=== PATIENT | male | born 1960 | race Caucasian/White ===

== ENCOUNTER 2019-05-03 11:16 | Emergency (ER) | payer OTHER ==
[2019-05-03 11:20] VITALS: BP 150/93; PULSE 84; TEMP 98.5; BMI 28.1
[2019-05-03] MEDS ORDERED: SODIUM CHLORIDE 1,000 ML IV STA (11:40)
[2019-05-03 12:10] LABS: URINE APPEARANCE CLEAR; URINE BILIRUBIN NEGATIVE (NEGATIVE); URINE COLOR YELLOW; URINE GLUCOSE (UA) 3+ (NEGATIVE); URINE KETONE TRACE (NEGATIVE); URINE LEUK ESTERASE NEGATIVE (NEGATIVE); URINE NITRITE NEGATIVE (NEGATIVE); URINE PROTEIN NEGATIVE (NEGATIVE)
--- NOTE | 2019-05-03 12:14 | PDOC ---
History of Present Illness - General Chief Complaint: Urinary Problem Stated Complaint: KIDNEY STONES Time Seen by Provider: 05/03/19 11:34 History Source: Patient Exam Limitations: No Limitations - History of Present Illness Travel History: No Initial Comments: 05/03/19 12:13 58-year-old male presents to ED with complaints of difficulty urinating intermittently and passing of 3 hard stones over the course of 2 days. Patient states has no abdominal pain, back pain, nausea fever or chills. Patient denies history of renal colic or prostate disorder. Patient states urinated clear yellow urine twice today without difficulty Timing/Duration: reports: intermittent Quality: reports: mild Aggravating Factors: improves with: Voiding Past History - Travel Traveled outside of the country in the last 30 days: No Close contact w/someone who was outside of country & ill: No - Past Medical History Allergies/Adverse Reactions: Allergies Allergy/AdvReac Type Severity Reaction Status Date / Time No Known Allergies Allergy Verified 05/03/19 11:20 COPD: No Seizures: Yes - Suicide/Smoking/Psychosocial Hx Smoking History: Current every day smoker Number of Cigarettes Smoked Daily: 3 Information on smoking cessation initiated: No Hx Alcohol Use: No Drug/Substance Use Hx: No Patient Lives Alone: No Lives with/in: spouse/SO Review of Systems - Review of Systems Able to Perform ROS?: Yes Constitutional: No: Symptoms Reported Respiratory: No: Symptoms reported Cardiac (ROS): No: Symptoms Reported ABD/GI: No: Symptoms Reported : Yes: Dysuria, Urgency, Other Musculoskeletal: No: Symptoms Reported Integumentary: No: Symptoms Reported Neurological: No: Symptoms reported *Physical Exam - Vital Signs Last Vital Signs Temp Pulse Resp BP Pulse Ox 98.5 F 84 18 150/93 96 05/03/19 11:18 05/03/19 11:18 05/03/19 11:18 05/03/19 11:18 05/03/19 11:18 - Physical Exam General Appearance: Yes: Nourished, Appropriately Dressed. No: Apparent Distress Gastrointestinal/Abdominal: positive: Soft. negative: Tenderness Male Genitalia: positive: normal genitalia. negative: discharge, testicular tenderness, testicular mass, hernia Musculoskeletal: negative: CVA Tenderness Extremity: positive: Normal Inspection Integumentary: positive: Normal Color, Warm, Moist Neurologic: positive: Motor Strength 5/5 (ambulatory) ED Treatment Course - LABORATORY CBC & Chemistry Diagram: 05/03/19 12:00 05/03/19 12:00 - ADDITIONAL ORDERS Additional order review: Laboratory Results 05/03/19 11:55 Urine Color Yellow Urine Appearance Clear Urine pH 5.0 Ur Specific [place] 1.028 Urine Protein Negative Urine Glucose (UA) 3+ H Urine Ketones Trace H Urine Blood Negative Urine Nitrite Negative Urine Bilirubin Negative Urine Urobilinogen 1.0 Ur Leukocyte Esterase Negative - RADIOLOGY Radiology Studies Ordered: Category Date Time Status SPIRAL- RENAL-STONE CT [CT] Stat CT Scan 05/03/19 11:39 Ordered Medical Decision Making - Medical Decision Making 05/03/19 12:15 Chief complaint: Urinary frequency and mild dysuria over the past 2 days passing light brown colored stones 3. No complaints today Exam: Vital signs stable no abdominal pain no CVA tenderness Plan: Urine, labs and spiral CT ordered 05/03/19 15:49 Laboratory Tests 05/03/19 05/03/19 05/03/19 11:55 12:00 12:00 WBC 6.5 Hgb 15.2 Hct 43.4 Absolute Neuts (auto) 4.3 Sodium 136 Potassium 4.3 Chloride 104 Carbon Dioxide 24 Anion Gap 8 BUN 18.8 H Creatinine 1.1 Random Glucose 265 H Calcium 9.1 Magnesium 2.5 H Total Bilirubin 0.7 AST 55 H ALT 119 H Alkaline Phosphatase 100 Total Protein 7.4 Lipase 172 Urine Glucose (UA) 3+ H Urine Ketones Trace H Urine Blood Negative Urine Nitrite Negative Ur Leukocyte Esterase Negative Ultrasound CT shows an liver slightly enlarged urgent 18 cm and chronic caudal length with diffuse decreased attenuation compatible with fatty liver. The left kidney is in normal limits in size to 2 mm nonobstructing stone in his upper pole and another 2 mm nonobstructing pole within the lower pole. The right kidney is within normal limits without evidence of stones. Prostate gland measuring 5.2 x 4 cm in transverse in AP dimension. Patient will be given a prescription for Flomax for 7 days and referral to urologist and recommendations to follow-up with his PCP in regards to his enlarged prostate and follow-up of kidney stones *DC/Admit/Observation/Transfer Diagnosis at time of Disposition: Kidney stone on left side - Discharge Dispostion Disposition: HOME Condition at time of disposition: Good - Referrals Referrals: Benson Lao [Primary Care Provider] - Leon Coats MD [Staff Physician] - - Patient Instructions Printed Discharge Instructions: DI for Kidney Stones Additional Instructions: Drink plenty of fluids. Take medication as prescribed and please up with your primary care physician and referred urologist - Post Discharge Activity
[2019-05-03 12:30] LABS: BASO % 0.6 % (0-2.0); EOS % 4.1 % (0-4.5); HEMATOCRIT 43.4 % (35.4-49); HEMOGLOBIN 15.2 GM/dL (11.7-16.9); LYMPH % 20.4 % (8-40); MCH 31.4 pg (25.7-33.7); MCHC 34.9 g/dl (32.0-35.9); MEAN PLT VOLUME 9.8 fl (7.5-11.1); NEUT % 66.9 % (42.8-82.8); PLATELET COUNT 168 K/MM3 (134-434); RBC 4.82 M/mm3 (4.00-5.60); RDW 13.2 % (11.9-15.9); WHITE BLOOD COUNT 6.5 K/mm3 (4.0-10.0)
[2019-05-03 13:02] LABS: ALBUMIN 4.1 g/dl (3.4-5.0); BILIRUBIN,TOTAL 0.7 mg/dL (0.2-1); BLOOD UREA NITROGEN 18.8 mg/dL (7-18); CALCIUM 9.1 mg/dL (8.5-10.1); CREATININE 1.1 mg/dL (0.55-1.3); MAGNESIUM 2.5 mg/dL (1.8-2.4); POTASSIUM 4.3 mmol/L (3.5-5.1); TOT PROT 7.4 g/dl (6.4-8.2)
== END 2019-05-03 15:58 | disposition home or self-care (01) ==
LOC: JER 11:16
PROC: 3E0337Z Introduction of Electrolytic and Water Balance Substance into Peripheral Vein, Percutaneous Approach (ICD-10-PCS; principal; 2019-05-03)
DX: N20.0 Calculus of kidney (principal)
CPT/HCPCS: 36415; 74176-TC; 80053; 81003; 83690; 83735; 85025; 87086; 96360; 99282-25; J7030

== ENCOUNTER 2020-01-04 05:29 | Inpatient (IN) | payer OTHER ==
[2020-01-04 06:39] LABS: HEMATOCRIT 39.8 % (35.4-49); HEMOGLOBIN 14.1 GM/dL (11.7-16.9); MCH 31.9 pg (25.7-33.7); MCHC 35.5 g/dl (32.0-35.9); MEAN CELL VOLUME 89.9 fl (80-96); MEAN PLT VOLUME 10.3 fl (7.5-11.1); PLATELET COUNT 112 K/MM3 (134-434); RBC 4.43 M/mm3 (4.00-5.60); RDW 13.2 % (11.9-15.9)
[2020-01-04 07:00] LABS: ALBUMIN 3.7 g/dl (3.4-5.0); ALK PHOS 89 U/L (45-117); ANION GAP 11 MMOL/L (8-16); BILIRUBIN,TOTAL 0.5 mg/dL (0.2-1); BLOOD UREA NITROGEN 15.5 mg/dL (7-18); CALCIUM 8.5 mg/dL (8.5-10.1); CHLORIDE 106 mmol/L (98-107); CO2 23 mmol/L (21-32); GLUCOSE,RANDOM 283 mg/dL (74-106); POTASSIUM 3.8 mmol/L (3.5-5.1); SGOT/AST 30 U/L (15-37); SGPT/ALT 69 U/L (13-61); SODIUM 139 mmol/L (136-145); TOT PROT 6.7 g/dl (6.4-8.2)
--- NOTE | 2020-01-04 07:35 | PDOC ---
History of Present Illness - General Chief Complaint: Lightheaded Stated Complaint: DIZZINESS Time Seen by Provider: 01/04/20 07:18 History Source: Patient Exam Limitations: No Limitations - History of Present Illness Initial Comments: 01/04/20 07:58 59 y.o. M PMH epilepsy (on dilantin but misses doses) and surgical hx of R frontal lobe craniotomy in the presenting for vertigo. Patient is a poor historian. Says he began to feel dizzy around 6pm last night after he "ate some weird cheese." Denies falling/ head trauma/ LOC/ headache or recent seizure but endorsing unsteady gait. Says he has not taken his dilantin dose in about 1 week because he does not get seizures. Does not see a neurologist. Unclear hx of alcohol use, says last drink was 3 days ago but will occasionally drink a few pints of vodka, about 1x per week. Denies illicit substance use. Says he used to see a Dr. Hurtado (neurosurgery) at [facility] but has not seen him in many years. 01/04/20 08:41 CT head showing s/p R frontal lobe craniotomy. R frontal lobe encephalomalacia w/ compensatory dilatation of the R frontal horn of R lateral ventricle. 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 Past History - Past Medical History Allergies/Adverse Reactions: Allergies Allergy/AdvReac Type Severity Reaction Status Date / Time No Known Allergies Allergy Verified 01/04/20 05:49 Home Medications: Ambulatory Orders Phenytoin Na Extended [Dilantin -] 300 mg PO DAILY 01/04/20 Cane 1 each MC DAILY #1 each 01/05/20 Meclizine HCl [Antivert -] 12.5 mg PO Q6HPO PRN #28 tablet 01/05/20 COPD: No Kidney Stones: Yes Seizures: Yes - Psycho Social/Smoking Cessation Hx Smoking Status: Yes Smoking History: Current every day smoker Have you smoked in the past 12 months: Yes Number of Cigarettes Smoked Daily: 3 Hx Alcohol Use: Yes (Social) Drug/Substance Use Hx: No Patient Lives Alone: Yes Review of Systems - Review of Systems Comments:: 01/04/20 07:34 GENERAL/CONSTITUTIONAL: No fever or chills. No weakness. HEAD, EYES, EARS, NOSE AND THROAT: No change in vision. No change in hearing. No sore throat. CARDIOVASCULAR: No chest pain or shortness of breath RESPIRATORY: Denies cough, hemoptysis GASTROINTESTINAL: No nausea, vomiting, diarrhea or constipation. GENITOURINARY: No dysuria, frequency, or change in urination. MUSCULOSKELETAL: No joint or muscle swelling or pain. No neck or back pain. SKIN: No rash noted NEUROLOGIC: + vertigo present w/ movement. No headache, loss of consciousness, or change in strength/sensation. ENDOCRINE: No increased thirst. No abnormal weight change HEMATOLOGIC/LYMPHATIC: No anemia, easy bleeding, or history of blood clots. ALLERGIC/IMMUNOLOGIC: No hives or skin allergy. *Physical Exam - Vital Signs Last Vital Signs Temp Pulse Resp BP Pulse Ox 98.1 F 65 22 H 137/80 99 01/04/20 05:30 01/04/20 05:30 01/04/20 05:30 01/04/20 05:30 01/04/20 05:30 - Physical Exam 01/04/20 07:35 GENERAL: Awake, alert, and oriented to person/place/time, in no acute distress. HEAD: No signs of trauma, NCAT EYES: Pupils miosed 1mm b/l, minimally reactive. EOMI. + scleral icterus. R medial conjunctiva blood vessel rupture. ENT: Hearing grossly normal, nares patent, oropharynx clear without exudates. MMM. NECK: Normal ROM, supple, no lymphadenopathy, JVD, or masses. LUNGS: No distress, speaking in full sentences, CTABL. HEART: Regular rate and rhythm, normal S1 and S2, no murmurs appreciated, p eripheral pulses normal and equal bilaterally. ABDOMEN: Soft, nontender, normoactive bowel sounds. No guarding, no rebound. No masses. EXTREMITIES: Normal inspection, Normal range of motion, no edema. No clubbing or cyanosis. NEUROLOGICAL: + Mateus hallpike maneuver w/ R nystagmus. R saccadic movement w/ R sided head turn. SKIN: Warm, Dry, normal turgor, no rashes or lesions noted. ED Treatment Course - LABORATORY CBC & Chemistry Diagram: 01/05/20 07:30 01/05/20 07:30 - ADDITIONAL ORDERS Additional order review: Laboratory Results 01/04/20 05:55 Sodium 139 Potassium 3.8 Chloride 106 Carbon Dioxide 23 Anion Gap 11 BUN 15.5 Creatinine 1.0 Est GFR (CKD-EPI)AfAm 95.06 Est GFR (CKD-EPI)NonAf 82.02 Random Glucose 283 H Calcium 8.5 Total Bilirubin 0.5 AST 30 ALT 69 H Alkaline Phosphatase 89 Troponin I < 0.02 Total Protein 6.7 Albumin 3.7 01/04/20 05:55 RBC 4.43 MCV 89.9 MCHC 35.5 RDW 13.2 MPV 10.3 Medical Decision Making - Medical Decision Making 01/04/20 10:46 EKG: NSR, no ST-T changes normal qtc Head CT findings as above. Labs: glucose 283. 01/04/20 10:47 UA, U-tox ordered Discharge - Discharge Information Problems reviewed: Yes Clinical Impression/Diagnosis: Epilepsy Condition: Improved - Admission Yes - Follow up/Referral - Patient Discharge Instructions - Post Discharge Activity
[2020-01-04] MEDS ORDERED: ONDANSETRON 4 MG/2 ML VIAL IVPUSH PRN (10:08)
--- NOTE | 2020-01-04 11:00 | EKG ---
Test Reason : Blood Pressure : / mmHG Vent. Rate : 065 BPM Atrial Rate : 065 BPM P-R Int : 164 ms QRS Dur : 082 ms QT Int : 398 ms P-R-T Axes : 035 047 027 degrees QTc Int : 413 ms NORMAL SINUS RHYTHM NORMAL ECG NO PREVIOUS ECGS AVAILABLE Confirmed by Adan Villafuerte MD ([id number]) on 01/04/2020 11:00:02 AM Referred By: Confirmed By:Adan Villafuerte MD
[2020-01-04] MEDS ORDERED: MECLIZINE HCL 12.5 MG TABLET PO PRN (11:17)
--- NOTE | 2020-01-04 11:29 | HP ---
CHIEF COMPLAINT: dizziness PCP: Dr. Gupta at [address] [place] [address] HISTORY OF PRESENT ILLNESS: 59 y/o male with PMH of epilepsy (on dilantin; hasnt taken any in a few days since he hasn't been having "active" seizures), kidney stones, previous R frontal lobe craniotomy (at [facility]- sees Dr Hurtado) presents to the ED with complaints of intractable dizziness - the dizziness has been ongoing for over a month with some gait disturbances ( he has not been driving for the past month or so) he states that he feels as if he is spinning and at times so is the room however got suddenly worse last night after he ate dinner; its associated with nausea no vomiting no headaches or vision changes denies any recent travel or sick contacts- patient lives alone ER course was notable for: (1)vitals and labs wnl- dilantin level wnl; UA/Utox pending (2) head CT- negative for any acute patholgogy; (3)given IV fluids; zofran; meclizine Recent Travel: denies PAST MEDICAL HISTORY: see above PAST SURGICAL HISTORY: R frontal craniotomy Social History: Smoking:denies Alcohol:former; used to drink a pint per week- hasn't had a drink in 3 months Drugs: Allergies No Known Allergies Allergy (Verified 01/04/20 05:49) HOME MEDICATIONS: Home Medications Medication Instructions Recorded Phenytoin Na Extended [Dilantin -] 300 mg PO DAILY 01/04/20 REVIEW OF SYSTEMS CONSTITUTIONAL: Absent: fever, chills, diaphoresis, generalized weakness, malaise, loss of appetite, weight change HEENT: Absent: rhinorrhea, nasal congestion, throat pain, throat swelling, difficulty swallowing, mouth swelling, ear pain, eye pain, visual changes CARDIOVASCULAR: Absent: chest pain, syncope, palpitations, irregular heart rate, lightheadedness, peripheral edema RESPIRATORY: Absent: cough, shortness of breath, dyspnea with exertion, orthopnea, wheezing, stridor, hemoptysis GASTROINTESTINAL: Absent: abdominal pain, abdominal distension, nausea, vomiting, diarrhea, constipation, melena, hematochezia GENITOURINARY: Absent: dysuria, frequency, urgency, hesitancy, hematuria, flank pain, genital pain MUSCULOSKELETAL: Absent: myalgia, arthralgia, joint swelling, back pain, neck pain SKIN: Absent: rash, itching, pallor HEMATOLOGIC/IMMUNOLOGIC: Absent: easy bleeding, easy bruising, lymphadenopathy, frequent infections ENDOCRINE: Absent: unexplained weight gain, unexplained weight loss, heat intolerance, cold intolerance NEUROLOGIC: Present: dizziness, unsteady gait, Absent: headache, focal weakness or parest hesias, seizure, mental status changes, bladder or bowel incontinence PSYCHIATRIC: Absent: anxiety, depression, suicidal or homicidal ideation, hallucinations. PHYSICAL EXAMINATION Vital Signs - 24 hr 01/04/20 05:30 Temperature 98.1 F Pulse Rate 65 Respiratory 22 H Rate Blood Pressure 137/80 O2 Sat by Pulse 99 Oximetry (%) GENERAL: Awake, alert, and fully oriented, in no acute distress. EYES: pinpoint pupils b/l NECK: no JVD; no lymphadenopathy LUNGS:CTA B/L; no rales, rhonchi or wheezing HEART:RRR s1 s2; no murmurs; rubs or gallops ABDOMEN: Soft, NT/ND+BS in all 4 quadrants MUSCULOSKELETAL: Normal range of motion at all joints. No bony deformities or tenderness. No CVA tenderness. EXTREMITIES: warm; well-perfused no clubbing/cyanosis or edema NEUROLOGICAL: Cranial nerves II-XII intact. 5/5 strength B/L UE and LE senastion intact; + dixhallpike manuver, no cerebellar signs- swaying gait PSYCHIATRIC: Cooperative. Good eye contact. Appropriate mood and affect. SKIN: Warm, dry, normal turgor, no rashes or lesions noted, normal capillary refill. Laboratory Results - last 24 hr 01/04/20 01/04/20 01/04/20 05:55 05:55 08:55 WBC 5.0 RBC 4.43 Hgb 14.1 Hct 39.8 MCV 89.9 MCH 31.9 MCHC 35.5 RDW 13.2 Plt Count 112 L D MPV 10.3 Sodium 139 Potassium 3.8 Chloride 106 Carbon Dioxide 23 Anion Gap 11 BUN 15.5 Creatinine 1.0 Est GFR (CKD-EPI)AfAm 95.06 Est GFR (CKD-EPI)NonAf 82.02 Random Glucose 283 H Calcium 8.5 Total Bilirubin 0.5 AST 30 ALT 69 H Alkaline Phosphatase 89 Ammonia Troponin I < 0.02 Total Protein 6.7 Albumin 3.7 Salicylates < 1.7 L Acetaminophen <2.0 Phenytoin 0.6 Alcohol, Quantitative 01/04/20 01/04/20 08:55 08:55 WBC RBC Hgb Hct MCV MCH MCHC RDW Plt Count MPV Sodium Potassium Chloride Carbon Dioxide Anion Gap BUN Creatinine Est GFR (CKD-EPI)AfAm Est GFR (CKD-EPI)NonAf Random Glucose Calcium Total Bilirubin AST ALT Alkaline Phosphatase Ammonia 28.90 Troponin I Total Protein Albumin Salicylates Acetaminophen Phenytoin Alcohol, Quantitative < 3 ASSESSMENT/PLAN: 59 y/o male with PMH of seizures (on dilantin) , previous R frontal lobe craniotomy (at [facility]- sees Dr Hurtado) presents to the ED with complaints of intractable dizziness #Vertigo no focal neurological deficits on exam -head CT negative -f/u UA and Utox -IVF, zofran/meclziine PRN -neuro consulted- will see patient in AM -PT/OT #Epilepsy History patient is on dilantin but has not taken it in a week -dilantin level wnl -will restart dilantin today -neuro consulted f/e/n/ NS monitor electrolytes regular diet dvt ppx: scds Family Medical History Family History: Unable to Obtain, Denies Problem List - Problem (1) Vertigo Code(s): R42 - DIZZINESS AND GIDDINESS Visit type - Emergency Visit Emergency Visit: Yes ED Registration Date: 01/04/20 Care time: The patient presented to the Emergency Department on the above date and was hospitalized for further evaluation of their emergent condition. - New Patient This patient is new to me today: Yes Date on this admission: 01/04/20 - Critical Care Critical Care patient: No ATTENDING PHYSICIAN STATEMENT I saw and evaluated the patient. I reviewed the resident's note and discussed the case with the resident. I agree with the resident's findings and plan as documented. SUBJECTIVE: OBJECTIVE: ASSESSMENT AND PLAN:
[2020-01-04] MEDS ORDERED: PHENYTOIN NA EXTENDED 100 MG CAPSULE (FP) ONE (11:37)
--- NOTE | 2020-01-04 11:41 | PDOC ---
Documentation entered by Semaj Bernal SCRIBE, acting as scribe for Jay Mitchell MD. Jay Mitchell MD: This documentation has been prepared by the Cyrus bowman Nirvannie, SCRIBE, under my direction and personally reviewed by me in its entirety. I confirm that the documentation accurately reflects all work, treatment, procedures, and medical decision making performed by me. Attending Attestation - Resident Resident Name: KavonFabienneDebra - ED Attending Attestation I have performed the following: I have examined & evaluated the patient, The case was reviewed & discussed with the resident, I agree w/resident's findings & plan - HPI HPI: 01/04/20 11:14 The patient is a 59 year old male, with a significant past medical history of epilepsy (stopped dilantin on his own a long time ago) and s/p craniotomy (right frontal lobe for fall/head injury 80s), who presents to the emergency department with dizziness and gait ataxia since 3am. As per patient, his symptoms onset was during his sleep at 3am, but reports prior sxs at 6p to resident. Patient notes his last drink of alcohol was 3 days ago and notes occasionally consuming a few pints of vodka 1x week. Some positional nature to the vertigo, worse with lying on his right side, and described "walking drunk" to the bathroom. sxs now resolved, total duration 1-2 hours. no associated headache/vision change/focal weakness. had one episode of vomiting with vertigo. Allergies: CIARAN Primary Care Physician: Dr. Lao Neurosurgery: Dr. Hurtado at [facility] (no followup in multiple years). - Physicial Exam PE: 01/04/20 11:38 Vital signs stable Well-appearing ambulating in the department steadily, speaking full sentences Pupils are equal round reactive to light, extraocular movements are intact No audible carotid bruit Heart is regular, lungs are clear Abdomen benign Neurologically nonfocal examination - Medical Decision Making 01/04/20 11:39 59-year-old male presents with episode of vertigo and ataxia this morning, now resolved. There was some Positional component, but symptoms were constant for several hours, raising concern for positional peripheral vertigo versus TIA. Labs within normal limits, CT head with chronic encephalomalacia but no acute infarct Given concern for TIA, will check MRI to rule out vertebrobasilar/cerebellar involvement Neuro consult Disposition accordingly Heart Score/ECG Review #1 ECG reviewed & interpreted by me at: 06:05 General ECG Interpretation: Sinus Rhythm, Normal Rate (65), Normal Intervals (qtc 413), No acute ischemic changes
[2020-01-04] MEDS: SODIUM CHLORIDE 1,000 ML IV SCH (11:44)
[2020-01-04] MEDS: PHENYTOIN NA EXTENDED 100 MG CAPSULE (FP) PO SCH (11:49)
[2020-01-04 12:06] LABS: URINE APPEARANCE Clear; URINE BILIRUBIN Negative (NEGATIVE); URINE COLOR Yellow; URINE GLUCOSE (UA) 2+ (NEGATIVE); URINE KETONE Trace (NEGATIVE); URINE LEUK ESTERASE Negative (NEGATIVE); URINE NITRITE Negative (NEGATIVE); URINE PROTEIN Trace (NEGATIVE); URINE UROBILINOGEN 0.2 mg/dL (0.2-1.0)
[2020-01-04 12:40] LABS: COCAINE, UR NEGATIVE ng/ml (CUTOFF=300); METHADONE, UR NEGATIVE ng/ml (CUTOFF=300); OPIATES, URI NEGATIVE ng/ml (CUTOFF=300); PHENCYCLIDINE,URINE NEGATIVE ng/ml (CUTOFF=25); URINE AMPHETAMINES NEGATIVE ng/ml (CUTOFF=500); URINE BARBITURATES NEGATIVE ng/ml (CUTOFF=200); URINE BENZODIAZEPINES NEGATIVE ng/ml (CUTOFF=200)
--- NOTE | 2020-01-04 19:13 | PN ---
Teaching Attending Note Name of Resident: Sweetie Craig ATTENDING PHYSICIAN STATEMENT I saw and evaluated the patient. I reviewed the resident's note and discussed the case with the resident. I agree with the resident's findings and plan as documented. SUBJECTIVE: Complains of some residual dizziness. No headache/visual disturbance/limb numbness, weakness, tingling. OBJECTIVE: Afebrile, Hemodynamically Stable. Last Vital Signs Temp Pulse Resp BP Pulse Ox 98.0 F 80 18 122/77 96 01/04/20 11:35 01/04/20 17:40 01/04/20 17:40 01/04/20 17:40 01/04/20 17:40 HEENT - Atraumatic, normocephalic Heart - S1, S2, RRR Lungs - clear to auscultation Abdomen - sot, non-tender. Bowel sounds normal. Extremities - No edema, no calf tenderness. Neuro - AAO x 3. HELEN. No nystagmus. EOMI. Tone/Power normal all extremities. Laboratory Results - last 24 hr 01/04/20 01/04/20 01/04/20 05:55 05:55 08:55 WBC 5.0 RBC 4.43 Hgb 14.1 Hct 39.8 MCV 89.9 MCH 31.9 MCHC 35.5 RDW 13.2 Plt Count 112 L D MPV 10.3 Sodium 139 Potassium 3.8 Chloride 106 Carbon Dioxide 23 Anion Gap 11 BUN 15.5 Creatinine 1.0 Est GFR (CKD-EPI)AfAm 95.06 Est GFR (CKD-EPI)NonAf 82.02 Random Glucose 283 H Calcium 8.5 Total Bilirubin 0.5 AST 30 ALT 69 H Alkaline Phosphatase 89 Ammonia Troponin I < 0.02 Total Protein 6.7 Albumin 3.7 Urine Color Urine Appearance Urine pH Ur Specific [place] Urine Protein Urine Glucose (UA) Urine Ketones Urine Blood Urine Nitrite Urine Bilirubin Urine Urobilinogen Ur Leukocyte Esterase Salicylates < 1.7 L Opiates Screen Methadone Screen Acetaminophen <2.0 Barbiturate Screen Phenytoin 0.6 Phencyclidine Screen Ur Amphetamines Screen MDMA (Ecstasy) Screen Benzodiazepines Screen Cocaine Screen U Marijuana (THC) Screen Alcohol, Quantitative 01/04/20 01/04/20 01/04/20 08:55 08:55 11:30 WBC RBC Hgb Hct MCV MCH MCHC RDW Plt Count MPV Sodium Potassium Chloride Carbon Dioxide Anion Gap BUN Creatinine Est GFR (CKD-EPI)AfAm Est GFR (CKD-EPI)NonAf Random Glucose Calcium Total Bilirubin AST ALT Alkaline Phosphatase Ammonia 28.90 Troponin I Total Protein Albumin Urine Color Yellow Urine Appearance Clear Urine pH 6.0 Ur Specific [place] 1.020 Urine Protein Trace Urine Glucose (UA) 2+ H Urine Ketones Trace Urine Blood Trace-intact Urine Nitrite Negative Urine Bilirubin Negative Urine Urobilinogen 0.2 Ur Leukocyte Esterase Negative Salicylates Opiates Screen Methadone Screen Acetaminophen Barbiturate Screen Phenytoin Phencyclidine Screen Ur Amphetamines Screen MDMA (Ecstasy) Screen Benzodiazepines Screen Cocaine Screen U Marijuana (THC) Screen Alcohol, Quantitative < 3 01/04/20 11:30 WBC RBC Hgb Hct MCV MCH MCHC RDW Plt Count MPV Sodium Potassium Chloride Carbon Dioxide Anion Gap BUN Creatinine Est GFR (CKD-EPI)AfAm Est GFR (CKD-EPI)NonAf Random Glucose Calcium Total Bilirubin AST ALT Alkaline Phosphatase Ammonia Troponin I Total Protein Albumin Urine Color Urine Appearance Urine pH Ur Specific [place] Urine Protein Urine Glucose (UA) Urine Ketones Urine Blood Urine Nitrite Urine Bilirubin Urine Urobilinogen Ur Leukocyte Esterase Salicylates Opiates Screen Negative Methadone Screen Negative Acetaminophen Barbiturate Screen Negative Phenytoin Phencyclidine Screen Negative Ur Amphetamines Screen Negative MDMA (Ecstasy) Screen Negative Benzodiazepines Screen Negative Cocaine Screen Negative U Marijuana (THC) Screen Negative Alcohol, Quantitative Current Medications Generic Name Dose Route Start Last Admin Trade Name Freq PRN Reason Stop Dose Admin Sodium Chloride 1,000 mls @ 100 mls/hr 01/04/20 10:15 01/04/20 11:44 Normal Saline - IV 100 mls/hr ASDIR JOSE Administration Meclizine HCl 12.5 mg 01/04/20 11:17 Antivert - PO Q6HPO PRN VERTIGO Ondansetron HCl 4 mg 01/04/20 10:08 Zofran Injection IVPUSH Q4H PRN NAUSEA AND/OR VOMITING Phenytoin Sodium 300 mg 01/04/20 11:49 01/04/20 11:49 Dilantin - PO 300 mg DAILY JOSE Administration Home Medications Medication Instructions Recorded Phenytoin Na Extended [Dilantin -] 300 mg PO DAILY 01/04/20 Phenytoin Na Extended [Dilantin -] 300 mg PO DAILY 01/04/20 ASSESSMENT AND PLAN: 59 year old male with history of Epilepsy (non-compliant with meds), Nephrolithiasis, s/p R frontal lobe craniotomy, presents to the ED with complain ts of intractable dizziness and gait disturbance, with associated nausea. No vomiting/headache/visual changes/limb numbness, weakness, or tingling. 1. Vertigo, likely BPPV No focal neurological deficits. CT Head - negative for acute findings, s/p R frontal lobe craniotomy, R frontal encephalomalacia, Aneurysmal clip noted. Neurology consulted. Orthostatic Vitals. Meclizine PRN. IV hydration PT - Will likely benefit from Vestibular rehab. 2. Epilepsy - normally on Phenytoin but not compliant Resumed on Phenytoin. Phenytoin Level requested. Neurology to evaluate. 3. Elevation in ALT (improved from 05/14) CT 05/14 shows fatty infiltration of liver. 4. Thrombocytopenia - ? secondary to liver pathology ? secondary to Phenytoin - for out-patient Hematology and GI referrals. DVT Px - Heparin SQ. Monitor Plts (on low side at 112)
[2020-01-04 20:45] VITALS: BMI 29.0
[2020-01-04] MEDS: HEPARIN NA (PORCINE) 5,000 UNITS/ML 1ML VIAL SQ SCH (22:39)
[2020-01-05] MEDS: HEPARIN NA (PORCINE) 5,000 UNITS/ML 1ML VIAL SQ SCH ×2 (05:52→13:58)
--- NOTE | 2020-01-05 08:46 | CONSULT ---
Consult - text type - Consultation Consultation Note: NEUROLOGY CHIEF COMPLAINT: dizziness PCP: Dr. Gupta at [address] [place] [address] HISTORY OF PRESENT ILLNESS: 59 y/o male with PMH of epilepsy (on dilantin; hasnt taken any in a few days since he hasn't been having "active" seizures), kidney stones, previous R frontal lobe craniotomy (at [facility]- sees Dr Hurtado) presented to the ED with complaints of intractable dizziness - the dizziness has been ongoing for over a month with some gait disturbances ( he has not been driving for the past month or so) he stated that he feels as if he is spinning and at times so is the room however got suddenly worse on night prior to admission after he ate dinner; its associated with nausea no vomiting no headaches or vision changes denied any recent travel or sick contacts- patient lives alone. CT of Head performed ans showed no acute pathology. Status post R. frontal lobe craniotomy. R. frontal lobe encephalomalacia with compensatory dilatation of frontal horn of R. lateral ventricle. 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 Patient doing better this morning and is ambulatory without significant dizziness. We had an extensive conversation regarding his seizures and his Dilantin level was subtherapeutic at 0.6. Had an extensive conversation regarding the importance of medication compliance for his seizure medications and he was in agreement. Advised follow-up as outpatient. Recent Travel: denies PAST MEDICAL HISTORY: see above PAST SURGICAL HISTORY: R frontal craniotomy Family History: HTN Social History: Smoking:denies Alcohol:former; used to drink a pint per week- hasn't had a drink in 3 months Drugs: denies REVIEW OF SYSTEMS CONSTITUTIONAL: Absent: fever, chills, diaphoresis, generalized weakness, malaise, loss of appetite, weight change HEENT: Absent: rhinorrhea, nasal congestion, throat pain, throat swelling, difficulty swallowing, mouth swelling, ear pain, eye pain, visual changes CARDIOVASCULAR: Absent: chest pain, syncope, palpitations, irregular heart rate, ligh theadedness, peripheral edema RESPIRATORY: Absent: cough, shortness of breath, dyspnea with exertion, orthopnea, wheezing, stridor, hemoptysis GASTROINTESTINAL: Absent: abdominal pain, abdominal distension, nausea, vomiting, diarrhea, constipation, melena, hematochezia GENITOURINARY: Absent: dysuria, frequency, urgency, hesitancy, hematuria, flank pain, genital pain MUSCULOSKELETAL: Absent: myalgia, arthralgia, joint swelling, back pain, neck pain SKIN: Absent: rash, itching, pallor HEMATOLOGIC/IMMUNOLOGIC: Absent: easy bleeding, easy bruising, lymphadenopathy, frequent infections ENDOCRINE: Absent: unexplained weight gain, unexplained weight loss, heat intolerance, cold intolerance NEUROLOGIC: Present: dizziness, unsteady gait, Absent: headache, focal weakness or paresthesias, seizure, mental status changes, bladder or bowel incontinence PSYCHIATRIC: Absent: anxiety, depression, suicidal or homicidal ideation, hallucinations. Allergies No Known Allergies Allergy (Verified 01/04/20 05:49) HOME MEDICATIONS: Home Medications Medication Instructions Recorded Phenytoin Na Extended [Dilantin -] 300 mg PO DAILY 01/04/20 Active Medications Heparin Sodium (Porcine) (Heparin -) 5,000 unit SQ TID [facility] Last Admin: 01/05/20 05:52 Dose: 5,000 unit Documented by: Sodium Chloride (Normal Saline -) 1,000 mls @ 100 mls/hr IV ASDIR [facility] Last Admin: 01/04/20 11:44 Dose: 100 mls/hr Documented by: Meclizine HCl (Antivert -) 12.5 mg PO Q6HPO PRN PRN Reason: VERTIGO Ondansetron HCl (Zofran Injection) 4 mg IVPUSH Q4H PRN PRN Reason: NAUSEA AND/OR VOMITING Phenytoin Sodium (Dilantin -) 300 mg PO DAILY [facility] Last Admin: 01/04/20 11:49 Dose: 300 mg Documented by: PHYSICAL EXAMINATION Vital Signs Period Temp Pulse Resp BP Sys/Almanzar Pulse Ox Last 24 Hr 97.8 F-98.0 F 66-80 16-18 119-143/68-78 96-97 GENERAL: Awake, alert, and fully oriented, in no acute distress. EYES: pinpoint pupils b/l NECK: no JVD; no lymphadenopathy LUNGS:CTA B/L; no rales, rhonchi or wheezing HEART:RRR s1 s2; no murmurs; rubs or gallops ABDOMEN: Soft, NT/ND+BS in all 4 quadrants MUSCULOSKELETAL: Normal range of motion at all joints. No bony deformities or tenderness. No CVA tenderness. EXTREMITIES: warm; well-perfused no clubbing/cyanosis or edema NEUROLOGICAL: Cranial nerves II-XII intact. 02/28 strength B/L UE and LE senastion intact; + dixhallpike manuver, no cerebellar signs- swaying gait PSYCHIATRIC: Cooperative. Good eye contact. Appropriate mood and affect. SKIN: Warm, dry, normal turgor, no rashes or lesions noted, normal capillary refill. CBCD WBC 5.0 K/mm3 (4.0-10.0) 01/04/20 05:55 RBC 4.43 M/mm3 (4.00-5.60) 01/04/20 05:55 Hgb 14.1 GM/dL (11.7-16.9) 01/04/20 05:55 Hct 39.8 % (35.4-49) 01/04/20 05:55 MCV 89.9 fl (80-96) 01/04/20 05:55 MCHC 35.5 g/dl (32.0-35.9) 01/04/20 05:55 RDW 13.2 % (11.9-15.9) 01/04/20 05:55 Plt Count 112 K/MM3 (134-434) L D 01/04/20 05:55 MPV 10.3 fl (7.5-11.1) 01/04/20 05:55 CMP Sodium 139 mmol/L (136-145) 01/04/20 05:55 Potassium 3.8 mmol/L (3.5-5.1) 01/04/20 05:55 Chloride 106 mmol/L (98-107) 01/04/20 05:55 Carbon Dioxide 23 mmol/L (21-32) 01/04/20 05:55 Anion Gap 11 MMOL/L (8-16) 01/04/20 05:55 BUN 15.5 mg/dL (7-18) 01/04/20 05:55 Creatinine 1.0 mg/dL (0.55-1.3) 01/04/20 05:55 Random Glucose 283 mg/dL (74-106) H 01/04/20 05:55 Calcium 8.5 mg/dL (8.5-10.1) 01/04/20 05:55 Total Bilirubin 0.5 mg/dL (0.2-1) 01/04/20 05:55 AST 30 U/L (15-37) 01/04/20 05:55 ALT 69 U/L (13-61) H 01/04/20 05:55 Alkaline Phosphatase 89 U/L (45-117) 01/04/20 05:55 Total Protein 6.7 g/dl (6.4-8.2) 01/04/20 05:55 Albumin 3.7 g/dl (3.4-5.0) 01/04/20 05:55 CARDIAC ENZYMES Troponin I < 0.02 ng/ml (0.00-0.05) 01/04/20 05:55 ASSESSMENT/PLAN: 59 y/o male with PMH of epilepsy (on dilantin; hasnt taken any in a few days since he hasn't been having "active" seizures), kidney stones, previous R frontal lobe craniotomy (at [facility]- sees Dr Hurtado) presented to the ED with complaints of intractable dizziness - the dizziness has been ongoing for over a month with some gait disturbances ( he has not been driving for the past month or so) he stated that he feels as if he is spinning and at times so is the room however got suddenly worse on night prior to admission after he ate dinner; its associated with nausea no vomiting no headaches or vision changes denied any recent travel or sick contacts- patient lives alone. CT of Head performed ans showed no acute pathology. Status post R. frontal lobe craniotomy. R. frontal lobe encephalomalacia with compensatory dilatation of frontal horn of R. lateral ventricle. 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 We had an extensive conversation regarding his seizures and his Dilantin level was subtherapeutic at 0.6. Had an extensive conversation regarding the importance of medication compliance for his seizure medications and he was in agreement. continue Dilantin as currently prescribed, no abnormal seizure activity. Advised follow-up as outpatient. Avoid any subsequent head trauma, maintain adequate hydration, meclizine as needed for dizziness. Avoid sudden head movements, outpatient follow-up.
[2020-01-05 08:48] LABS: BASO % 1.4 % (0-2.0); EOS % 3.8 % (0-4.5); HEMATOCRIT 40.1 % (35.4-49); HEMOGLOBIN 14.1 GM/dL (11.7-16.9); LYMPH % 26.9 % (8-40); MCH 31.8 pg (25.7-33.7); MCHC 35.1 g/dl (32.0-35.9); MEAN CELL VOLUME 90.5 fl (80-96); MEAN PLT VOLUME 10.3 fl (7.5-11.1); MONO % 6.4 % (3.8-10.2); NEUT % 61.5 % (42.8-82.8); PLATELET COUNT 121 K/MM3 (134-434); RBC 4.43 M/mm3 (4.00-5.60); RDW 13.3 % (11.9-15.9)
[2020-01-05 09:16] LABS: ALBUMIN 3.4 g/dl (3.4-5.0); BILIRUBIN,TOTAL 0.6 mg/dL (0.2-1); BLOOD UREA NITROGEN 14.2 mg/dL (7-18); CALCIUM 8.4 mg/dL (8.5-10.1); CREATININE 0.9 mg/dL (0.55-1.3); MAGNESIUM 2.2 mg/dL (1.8-2.4); PHOSPHOROUS 2.7 mg/dL (2.5-4.9); TOT PROT 6.3 g/dl (6.4-8.2)
[2020-01-05] MEDS: PHENYTOIN NA EXTENDED 100 MG CAPSULE (FP) PO SCH (09:35)
[2020-01-05] MEDS ORDERED: PHENYTOIN NA EXTENDED 100 MG CAPSULE (FP) PO SCH (10:00)
[2020-01-05] MEDS: SODIUM CHLORIDE 1,000 ML IV SCH (12:31)
[2020-01-05 13:49] VITALS: BP 139/81; PULSE 77; TEMP 97.7
--- NOTE | 2020-01-05 14:18 | DS ---
Physical Exam: SUBJECTIVE: Patient seen and examined at the bedside. Stated that he is feeling better, with less dizziness. Denies cp, sob, abd pain, n/v/c/d, headaches, syncope, confusion, fever, chills, focal weakness, numbness, tingling. OBJECTIVE: Vital Signs Period Temp Pulse Resp BP Sys/Almanzar Pulse Ox Last 24 Hr 97.7 F-98.0 F 66-81 16-20 119-144/68-81 96-97 PHYSICAL EXAM GENERAL: The patient is awake, alert, and fully oriented, in no acute distress. HEAD: Normal with no signs of trauma. EYES: PERRL, extraocular movements intact. ENT: Oropharynx clear without exudates, moist mucous membranes. LUNGS: Breath sounds equal, clear to auscultation bilaterally, no wheezes, no crackles, no accessory muscle use. HEART: Regular rate and rhythm, S1, S2 without murmur. ABDOMEN: Soft, nontender, nondistended, normoactive bowel sounds, no guarding, no rebound, no masses. EXTREMITIES: 2+ pulses, warm, well-perfused, no edema. NEUROLOGICAL: Right facial droop (chronic), otherwise CN II-XII intact. 5/5 muscle strength upper and lower extremities, sensation intact to gross touch th roughout. PSYCH: Normal mood, normal affect. SKIN: Warm, dry, normal turgor. LABS Laboratory Results - last 24 hr 01/05/20 01/05/20 07:30 07:30 WBC 5.0 RBC 4.43 Hgb 14.1 Hct 40.1 MCV 90.5 MCH 31.8 MCHC 35.1 RDW 13.3 Plt Count 121 L MPV 10.3 Absolute Neuts (auto) 3.1 Neutrophils % 61.5 Lymphocytes % 26.9 D Monocytes % 6.4 Eosinophils % 3.8 Basophils % 1.4 Nucleated RBC % 0 Sodium 139 Potassium 4.0 Chloride 106 Carbon Dioxide 25 Anion Gap 8 BUN 14.2 Creatinine 0.9 Est GFR (CKD-EPI)AfAm 107.97 Est GFR (CKD-EPI)NonAf 93.16 Random Glucose 180 H Calcium 8.4 L Phosphorus 2.7 Magnesium 2.2 Total Bilirubin 0.6 AST 31 ALT 66 H Alkaline Phosphatase 83 Total Protein 6.3 L Albumin 3.4 HOSPITAL COURSE: Oneil Carmichael is a 59 year old male with a past medical history of seizures (on dilantin) , previous R frontal lobe craniotomy (at [facility]) admitted with vertigo. Head CT noted old encephalomalacia with dilation of the frontal horn of the right ventricle, aneurysmal clip in the anterior interhemispheric cistern, s/p right frontal lobe craniotomy, otherwise no acute pathology. UA and Utox were negative. Neurology was consulted to see the patient and advised meclizine, taking care with no rapid movement of body or head, have adequate hydration and to follow up outpatient. While admitted the patient was restarted on Dilantin as patient noted non- compliance. Low Dilantin level was noted. Was emphasized to patient to be compliant with his anti-epileptic medications. Patient was walked well in the hallway and did not require any assistance. Patient was spoken to about the plan and was in agreement. Patient was discharged in stable medical condition. Date of Admission:01/04/20 Date of Discharge: 01/05/20 Minutes to complete discharge: 35 Discharge Summary Problems reviewed: Yes Reason For Visit: VERTIGO Current Active Problems Epilepsy (Chronic) Condition: Improved - Instructions Diet, Activity, Other Instructions: You were admitted because you had dizziness. You had a head CT which did not show any new findings. You were seen by a neurologist who recommended to avoid sudden movements of your head, continue to take all of your home seizure medications and to follow up outpatient. MEDICATIONS START to take meclizine 12.5mg every 6 hours only as needed if you feel dizzy. Continue to take all of your home medication as prescribed. REFERRALS Please follow up with your primary care provider, Candy Martinez, within 1 week. Please follow up with your neurologist, Dr. Olson, within 1 week. SPECIAL INSTRUCTIONS Be careful when you walk to avoid falls. Do not move your body or head suddenly to avoid causing dizziness. If you have further symptoms of dizziness, lightheadedness, fevers, headaches, chest pain, shortness of breath, vomiting, or any other general feelings of unwellness, please call 911 or go to your nearest emergency room. Referrals: Candy Martinez NP [Non Staff, Medical] - 1 Week Yeyo Olson MD [Staff Physician] - 1 Week Disposition: HOME - Home Medications Comprehensive Discharge Medication List: Ambulatory Orders Phenytoin Na Extended [Dilantin -] 300 mg PO DAILY 01/04/20 Cane 1 each MC DAILY #1 each 01/05/20 Meclizine HCl [Antivert -] 12.5 mg PO Q6HPO PRN #28 tablet 01/05/20 Problem List - Problems (1) Epilepsy Code(s): G40.909 - EPILEPSY, UNSP, NOT INTRACTABLE, WITHOUT STATUS EPILEPTICUS (2) Vertigo Code(s): R42 - DIZZINESS AND GIDDINESS This patient is new to me today: Yes Date on this admission: 01/05/20 Emergency Visit: Yes ED Registration Date: 01/04/20 Care time: The patient presented to the Emergency Department on the above date and was hospitalized for further evaluation of their emergent condition. Critical Care patient: No - Discharge Referral Referred to [facility] Med [facility].: No
--- NOTE | 2020-01-05 16:38 | PN ---
Teaching Attending Note Name of Resident: Chris Brown ATTENDING PHYSICIAN STATEMENT I saw and evaluated the patient. I reviewed the resident's note and discussed the case with the resident. I agree with the resident's findings and plan as documented. SUBJECTIVE: Dizziness much improved. No headache/visual disturbance/limb numbness, weakness, tingling. OBJECTIVE: Afebrile, Hemodynamically Stable. Ambulating well, normal gait, no dizziness. Last Vital Signs Temp Pulse Resp BP Pulse Ox 97.7 F 77 20 139/81 97 01/05/20 13:48 01/05/20 13:48 01/05/20 13:48 01/05/20 13:48 01/04/20 20:29 Heart - S1, S2, RRR Lungs - clear to auscultation Abdomen - soft, non-tender. Bowel sounds normal. Extremities - No edema, no calf tenderness. Neuro - AAO x 3. HELEN. No nystagmus. EOMI. Tone/Power normal all extremities. Laboratory Results - last 24 hr 01/05/20 01/05/20 07:30 07:30 WBC 5.0 RBC 4.43 Hgb 14.1 Hct 40.1 MCV 90.5 MCH 31.8 MCHC 35.1 RDW 13.3 Plt Count 121 L MPV 10.3 Absolute Neuts (auto) 3.1 Neutrophils % 61.5 Lymphocytes % 26.9 D Monocytes % 6.4 Eosinophils % 3.8 Basophils % 1.4 Nucleated RBC % 0 Sodium 139 Potassium 4.0 Chloride 106 Carbon Dioxide 25 Anion Gap 8 BUN 14.2 Creatinine 0.9 Est GFR (CKD-EPI)AfAm 107.97 Est GFR (CKD-EPI)NonAf 93.16 Random Glucose 180 H Calcium 8.4 L Phosphorus 2.7 Magnesium 2.2 Total Bilirubin 0.6 AST 31 ALT 66 H Alkaline Phosphatase 83 Total Protein 6.3 L Albumin 3.4 Home Medications Medication Instructions Recorded Phenytoin Na Extended [Dilantin -] 300 mg PO DAILY 01/04/20 Cane 1 each MC DAILY #1 each 01/05/20 Meclizine HCl [Antivert -] 12.5 mg PO Q6HPO PRN #28 tablet 01/05/20 ASSESSMENT AND PLAN: 59 year old male with history of Epilepsy (non-compliant with meds), Nephrolithiasis, s/p R frontal lobe craniotomy, presents to the ED with complaints of intractable dizziness and gait disturbance, with associated nausea. No vomiting/headache/visual changes/limb numbness, weakness, or tingling. 1. Vertigo, likely BPPV No focal neurological deficits. CT Head - negative for acute findings, s/p R frontal lobe craniotomy, R frontal encephalomalacia, Aneurysmal clip noted. Neurology evaluated - for out-patient follow up. Meclizine PRN. Medically and neurologically stable for discharge. 2. Epilepsy - normally on Phenytoin but not compliant Resumed on Phenytoin as per Neuro Out-patient follow up as per Neurology. 3. Elevation in ALT (improved from 05/14) CT 05/14 shows fatty infiltration of liver. 4. Thrombocytopenia - ? secondary to liver pathology ? secondary to Phenytoin - for out-patient Hematology and GI referrals. Medically optimized for discharge.
== END 2020-01-05 14:16 | disposition home or self-care (01) | DRG 149 ==
LOC: JER 05:29 → JERBED 10:49 → J6S 20:29
DX: R42 Dizziness and giddiness (principal); G40.909 Epilepsy, unspecified, not intractable, without status epilepticus; D69.6 Thrombocytopenia, unspecified
CPT/HCPCS: 36415; 70450-TC; 80053; 80185; 80186; 80307; 81003; 82140; 83735; 84100; 84484; 85025; 85027; 87086; 93005; 93010; 97116-GP; 97162-GP; 99285-25; J1644; J7030

== ENCOUNTER 2022-05-02 10:45 | Emergency (ER) | payer OTHER ==
[2022-05-02 10:50] VITALS: BP 117/67; PULSE 74; TEMP 98.2; BMI 28.1
[2022-05-02] MEDS ORDERED: SODIUM CHLORIDE 1,000 ML IV STA (12:08)
[2022-05-02] MEDS ORDERED: ACETAMINOPHEN 1000 MG/100 ML BAG IVPB ONE (12:09)
[2022-05-02] MEDS ORDERED: IBUPROFEN 400 MG TABLET (FP) PO ONE ×2 (13:47→13:51)
[2022-05-02 14:05] LABS: BASO % 0.7 % (0-2.0); HEMATOCRIT 45.2 % (35.4-49); HEMOGLOBIN 15.9 GM/dL (11.7-16.9); LYMPH % 13.5 % (8-40); MCH 32.7 pg (25.7-33.7); MCHC 35.2 g/dl (32.0-35.9); MEAN CELL VOLUME 92.8 fl (80-96); MEAN PLT VOLUME 9.8 fl (7.5-11.1); MONO % 5.8 % (3.8-10.2); PLATELET COUNT 121 10^3/uL (134-434); RBC 4.86 M/mm3 (4.00-5.60); RDW 13.6 % (11.9-15.9); WHITE BLOOD COUNT 8.7 K/mm3 (4.0-10.0)
[2022-05-02 14:28] LABS: CALCIUM 9.8 mg/dL (8.5-10.1)
[2022-05-02 14:29] LABS: ALBUMIN 4.5 g/dl (3.4-5.0); BLOOD UREA NITROGEN 11.3 mg/dL (7-18)
[2022-05-02 14:34] LABS: TOT PROT 8.2 g/dl (6.4-8.2)
[2022-05-02 15:14] LABS: URINE APPEARANCE CLEAR; URINE BILIRUBIN NEGATIVE (NEGATIVE); URINE COLOR YELLOW; URINE GLUCOSE (UA) 3+ (NEGATIVE); URINE KETONE NEGATIVE (NEGATIVE); URINE LEUK ESTERASE NEGATIVE (NEGATIVE); URINE NITRITE NEGATIVE (NEGATIVE); URINE PROTEIN TRACE (NEGATIVE); URINE UROBILINOGEN 0.2 mg/dL (0.2-1.0)
== END 2022-05-02 17:24 | disposition home or self-care (01) ==
LOC: JER 10:45
PROC: 3E033NZ Introduction of Analgesics, Hypnotics, Sedatives into Peripheral Vein, Percutaneous Approach (ICD-10-PCS; principal; 2022-05-02)
PROC: 3E0337Z Introduction of Electrolytic and Water Balance Substance into Peripheral Vein, Percutaneous Approach (ICD-10-PCS; 2022-05-02)
DX: N45.3 Epididymo-orchitis (principal)
CPT/HCPCS: 36415; 76870-TC; 80053; 81003; 85025; 87086; 87491; 87591; 96360; 96374; 99284-25